=== PATIENT | male | born 1950 | race Caucasian/White ===

== ENCOUNTER → 2016-02-27 | Outpatient (CLI) | payer MEDICARE, OTHER ==
[2016-02-27 10:21] LABS: ANION GAP 16 (5-19); BLOOD UREA NITROGEN 22 mg/dL (7-20); CALCIUM 9.8 mg/dL (8.4-10.2); CARBON DIOXIDE 25 mmol/L (22-30); CHLORIDE 101 mmol/L (98-107); CREATININE RESULT 1.08 mg/dL (0.52-1.25); GLUCOSE 125 mg/dL (75-110); POTASSIUM 4.3 mmol/L (3.6-5.0); SODIUM 141.5 mmol/L (137-145)
== END ==
LOC: OD 09:19
PROVIDERS: ATTEND Urology
DX: N20.0 Calculus of kidney (principal)
CPT/HCPCS: 36415; 80048; 81003; 82131; 82340; 82507; 82570; 83735; 83935; 83945; 83970; 84105; 84156; 84300; 84392; 84560

== ENCOUNTER → 2016-03-22 | Outpatient (CLI) | payer MEDICARE, OTHER | LOC: OD 08:07 | DX: R06.02 Shortness of breath (principal); B00.89 Other herpesviral infection; I10 Essential (primary) hypertension; Z79.899 Other long term (current) drug therapy; M19.042 Primary osteoarthritis, left hand | CPT/HCPCS: 71020 ==

== ENCOUNTER → 2016-03-22 | Outpatient (CLI) | payer MEDICARE, OTHER ==
[2016-03-22 08:36] LABS: ABSOLUTE BASOPHILS # (AUTO) 0.1 10^3/uL (0.0-0.2); ABSOLUTE EOSINOPHILS # (AUTO) 0.2 10^3/uL (0.0-0.6); ABSOLUTE LYMPHOCYTES (AUTO) 3.1 10^3/uL (0.5-4.7); ABSOLUTE MONOCYTES (AUTO) 1.1 10^3/uL (0.1-1.4); ABSOLUTE NEUT (AUTO) 8.4 10^3/uL (1.7-8.2); BASOPHILS % (AUTO) 0.4 % (0-2); EOSINOPHILS % (AUTO) 1.2 % (0-6); HEMATOCRIT 43.5 % (37.9-51.0); HEMOGLOBIN 14.5 g/dL (13.5-17.0); LYMPHOCYTES % (AUTO) 24.3 % (13-45); MEAN CORPUSCULAR HEMOGLOBIN 29.8 pg (27.0-33.4); MEAN CORPUSCULAR HGB CONC 33.4 g/dL (32.0-36.0); MEAN CORPUSCULAR VOLUME 89 fl (80-97); MONOCYTES % (AUTO) 8.9 % (3-13); RED BLOOD COUNT 4.88 10^6/uL (4.35-5.55); RED CELL DISTRIBUTION WIDTH 13.5 % (11.5-14.0); SEGMENTED NEUTROPHILS % (AUTO) 65.2 % (42-78); WHITE BLOOD COUNT 12.9 10^3/uL (4.0-10.5)
[2016-03-22 08:57] LABS: ALANINE AMINOTRANSFERASE 36 U/L (21-72); ALBUMIN 4.8 g/dL (3.5-5.0); ALKALINE PHOSPHATASE 59 U/L (38-126); ANION GAP 14 (5-19); ASPARTATE AMINO TRANSFERASE 21 U/L (17-59); BILIRUBIN,TOTAL 0.6 mg/dL (0.2-1.3); BLOOD UREA NITROGEN 28 mg/dL (7-20); CALCIUM 9.8 mg/dL (8.4-10.2); CARBON DIOXIDE 27 mmol/L (22-30); CHLORIDE 98 mmol/L (98-107); CHOLESTEROL 164.26 mg/dL (0-200); CREATININE RESULT 1.04 mg/dL (0.52-1.25); Direct HDL 35 mg/dL (>40); GLUCOSE 87 mg/dL (75-110); POTASSIUM 4.7 mmol/L (3.6-5.0); SODIUM 138.5 mmol/L (137-145); TOTAL PROTEIN 7.4 g/dL (6.3-8.2); TRIGLYCERIDES 310 mg/dL (<150)
[2016-03-22 09:08] LABS: DIRECT LDL 84 mg/dL (<100)
== END ==
LOC: OD 07:51
DX: B00.89 Other herpesviral infection (principal); L03.019 Cellulitis of unspecified finger; E11.9 Type 2 diabetes mellitus without complications; Z79.899 Other long term (current) drug therapy; Z12.5 Encounter for screening for malignant neoplasm of prostate
CPT/HCPCS: 36415; 80053; 80061; 83036; 84153; 84443; 85025

== ENCOUNTER → 2016-07-27 | Outpatient (CLI) | payer MEDICARE, OTHER | LOC: OD 10:10 | PROVIDERS: ATTEND Physician Assistant | DX: M13.0 Polyarthritis, unspecified (principal) | CPT/HCPCS: 36415; 85652; 86038; 86140; 86256; 86430 ==

== ENCOUNTER 2017-08-25 12:23 | Observation (INO) | payer MEDICARE, OTHER ==
[2017-08-25 12:56] LABS: ABSOLUTE BASOPHILS # (AUTO) 0.1 10^3/uL (0.0-0.2); ABSOLUTE EOSINOPHILS # (AUTO) 0.1 10^3/uL (0.0-0.6); ABSOLUTE LYMPHOCYTES (AUTO) 2.1 10^3/uL (0.5-4.7); ABSOLUTE MONOCYTES (AUTO) 0.7 10^3/uL (0.1-1.4); ABSOLUTE NEUT (AUTO) 4.4 10^3/uL (1.7-8.2); BASOPHILS % (AUTO) 0.9 % (0-2); EOSINOPHILS % (AUTO) 1.8 % (0-6); INTERNATIONAL RATION (INR) 0.98; LYMPHOCYTES % (AUTO) 28.6 % (13-45); MEAN CORPUSCULAR HEMOGLOBIN 30.7 pg (27.0-33.4); MEAN CORPUSCULAR HGB CONC 34.1 g/dL (32.0-36.0); MEAN CORPUSCULAR VOLUME 90 fl (80-97); MONOCYTES % (AUTO) 9.6 % (3-13); PARTIAL THROMBOPLASTIN TIME 27.5 SEC (23.5-35.8); PLATELET COUNT 292 10^3/uL (150-450); RED CELL DISTRIBUTION WIDTH 13.1 % (11.5-14.0); SEGMENTED NEUTROPHILS % (AUTO) 59.1 % (42-78); TOTAL CELLS COUNTED % (AUTO) 100 %; WHITE BLOOD COUNT 7.5 10^3/uL (4.0-10.5)
[2017-08-25 13:03] LABS: PROTHROMBIN TIME 13.5 SEC (11.4-15.4)
[2017-08-25 13:13] LABS: ALANINE AMINOTRANSFERASE 37 U/L (21-72); ALBUMIN 4.6 g/dL (3.5-5.0); ALKALINE PHOSPHATASE 58 U/L (38-126); ANION GAP 15 (5-19); ASPARTATE AMINO TRANSFERASE 31 U/L (17-59); BILIRUBIN,DIRECT 0.4 mg/dL (0.0-0.4); BILIRUBIN,TOTAL 0.4 mg/dL (0.2-1.3); BLOOD UREA NITROGEN 25 mg/dL (7-20); CALCIUM 10.5 mg/dL (8.4-10.2); CARBON DIOXIDE 28 mmol/L (22-30); CHLORIDE 103 mmol/L (98-107); CREATINE KINASE 75 U/L (55-170); GLUCOSE 90 mg/dL (75-110); POTASSIUM 5.3 mmol/L (3.6-5.0); TOTAL PROTEIN 7.5 g/dL (6.3-8.2)
--- NOTE | 2017-08-25 13:22 | RADIOLOGY REPORT (SQ) ---
EXAM DESCRIPTION: CT HEAD WITHOUT COMPLETED DATE/TIME: 08/25/2017 12:38 pm REASON FOR STUDY: left numbness COMPARISON: August 2014 TECHNIQUE: Axial images acquired through the brain without intravenous contrast. Images reviewed wi th bone, brain and subdural windows. Additional sagittal and coronal reconstructions were generated. Images stored on PACS. All CT scanners at this facility use dose modulation, iterative reconstruction, and/or weight based d osing when appropriate to reduce radiation dose to as low as reasonably achievable (ALARA). [facility]: Dose Right [facility]: CareDose [facility]: Dose Right [facility]: Teradose 4D [facility]: Smart Mapbar RADIATION DOSE: CT Rad equipment meets quality standard of care and radiation dose reduction techniq ues were employed. CTDIvol: 53.2 mGy. DLP: 1017 mGy-cm. mGy. LIMITATIONS: None. FINDINGS: VENTRICLES: Normal size and contour. CEREBRUM: No masses. No hemorrhage. No midline shift. No evidence for acute infarction. Normal gra y/white matter differentiation. No areas of low density in the white matter. CEREBELLUM: No masses. No hemorrhage. No alteration of density. No evidence for acute infarction. EXTRAAXIAL SPACES: No fluid collections. No masses. ORBITS AND GLOBE: No intra- or extraconal masses. Normal contour of globe without masses. CALVARIUM: No fracture. PARANASAL SINUSES: Small mucosal polyp retention cyst is identified in the floor of the left maxillar y antra. SOFT TISSUES: No mass or hematoma. OTHER: No other significant finding. IMPRESSION: No significant intracranial abnormalities were identified. Findings as noted above EVIDENCE OF ACUTE STROKE: NO. COMMENT: Quality ID # [id number]: Final reports with documentation of one or more dose reduction techniques (e.g., Automated exposure control, adjustment of the mA and/or kV according to patient size, use of iterative reconstruction technique) TECHNICAL DOCUMENTATION: JOB ID: [id number] [employer]- All Rights Reserved Reading location - IP/workstation name: [email or web address]
[2017-08-25] MEDS ORDERED: ASPIRIN 81 MG TABLET, CHEWABLE PO ONE (13:42)
[2017-08-25 13:49] LABS: CREATINE KINASE MB 1.16 ng/mL (<4.55)
[2017-08-25 13:50] LABS: TROPONIN I < 0.012 ng/mL
--- NOTE | 2017-08-25 13:55 | RADIOLOGY REPORT (SQ) ---
EXAM DESCRIPTION: CHEST SINGLE VIEW COMPLETED DATE/TIME: 08/25/2017 1:25 pm REASON FOR STUDY: left numbness COMPARISON: March 2016 EXAM PARAMETERS: NUMBER OF VIEWS: One view. TECHNIQUE: Single frontal radiographic view of the chest acquired. RADIATION DOSE: NA LIMITATIONS: None. FINDINGS: LUNGS AND PLEURA: No opacities, masses or pneumothorax. No pleural effusion. There is a s mall focal linear density in the left costophrenic angle most consistent with subsegmental atelectasi s MEDIASTINUM AND HILAR STRUCTURES: No masses. Contour normal. HEART AND VASCULAR STRUCTURES: Heart normal in size. Normal vasculature. BONES: No acute findings. HARDWARE: None in the chest. OTHER: No other significant finding. IMPRESSION: NO ACUTE RADIOGRAPHIC FINDING IN THE CHEST. TECHNICAL DOCUMENTATION: JOB ID: [id number] [employer]- All Rights Reserved Reading location - IP/workstation name: [email or web address]
--- NOTE | 2017-08-25 14:45 | ER Document Report ---
ED Neuro Symptoms/Deficit - General Chief Complaint: S/S of Possible Stroke Stated Complaint: NUMBNESS TO FACE Time Seen by Provider: 08/25/17 12:31 Mode of Arrival: Ambulatory Information source: Patient Notes: Patient is 66-year-old male with hypertension, hyperlipidemia, diabetes who presents to the ER today via EMS for numbness and tingling to the left side of his face since 1:30 AM patient states that he woke up at [address] He denies any pain, slurred speech, facial droop, numbness or tingling, weakness anywhere else. Patient states it goes from the left corner of the mouth and has gradually spread to the front of the left ear and beneath the left eye. He does admit to some headache, behind the left eye. He denies any blurred vision but does state that earlier it was "difficult to see, kind of like I had to blink a couple times." He cannot further explain this. Patient has no history of heart attack or stroke. TRAVEL OUTSIDE OF THE [place] IN LAST 30 DAYS: No - Related Data Allergies/Adverse Reactions: No Known Allergies Allergy (Verified 12/22/15 09:06) Past Medical History - General Information source: Patient - Social History Smoking Status: Never Smoker Chew tobacco use (# tins/day): No Frequency of alcohol use: None Drug Abuse: None Family History: Reviewed & Not Pertinent Patient has suicidal ideation: No Patient has homicidal ideation: No - Past Medical History Cardiac Medical History: Reports: Hx Coronary Artery Disease, Hx Hypercholesterolemia, Hx Hypertension Denies: Hx Heart Attack Pulmonary Medical History: Denies: Hx Asthma, Hx Bronchitis, Hx COPD, Hx Pneumonia Neurological Medical History: Reports: Hx Migraine. Denies: Hx Cerebrovascular Accident, Hx Seizures Endocrine Medical History: Reports: Hx Diabetes Mellitus Type 2 Renal/ Medical History: Denies: Hx Peritoneal Dialysis Musculoskeletal Medical History: Denies Hx Arthritis Past Surgical History: Reports: Hx Orthopedic Surgery - left knee, left hand - Immunizations Hx Diphtheria, Pertussis, Tetanus Vaccination: Yes Hx Pneumococcal Vaccination: 02/14/14 Review of Systems - Review of Systems Constitutional: No symptoms reported EENT: No symptoms reported Cardiovascular: No symptoms reported Respiratory: No symptoms reported Gastrointestinal: No symptoms reported Genitourinary: No symptoms reported Male Genitourinary: No symptoms reported Musculoskeletal: No symptoms reported Skin: No symptoms reported Hematologic/Lymphatic: No symptoms reported Neurological/Psychological: See HPI Physical Exam - Vital signs Vitals: Pulse Ox 97 08/25/17 12:29 - Notes Notes: PHYSICAL EXAMINATION: GENERAL: Well-appearing and in no acute distress. HEAD: Atraumatic, normocephalic. EYES: Pupils equal round and reactive to light, extraocular movements intact, sclera anicteric, conjunctiva are normal. ENT: ear canals without erythema or foreign body, TMs pearly pimentel with good bony landmarks, nares patent, oropharynx clear without exudates. Moist mucous membranes. NECK: Normal range of motion, supple without lymphadenopathy LUNGS: CTAB and equal. No wheezes rales or rhonchi. HEART: Regular rate and rhythm without murmurs ABDOMEN: Soft, no tenderness. No guarding, no rebound BACK: no vertebral tenderness, normal ROM GI/: no CVA tenderness EXTREMITIES: Normal range of motion, no pitting edema. No cyanosis. NEUROLOGICAL: Cranial nerves grossly intact. Normal sensory/motor exams. Good and equal strength bilaterally, Kernig and Brudzinski's signs negative, Romberg' s test normal, normal heel to perez testing PSYCH: Normal mood, normal affect. SKIN: Warm, Dry, normal turgor, no rashes or lesions noted Course - Re-evaluation Re-evalutation: 08/25/17 15:36 Patient has an NIH score of 0, normal neurological exam although he complains of some numbness and tingling to the left side of his face. Patient does state that it seems to be getting a little better. CT of the head is negative for any acute pathology today, troponin normal, chest x-ray negative for any acute pathology, other lab work unremarkable today. Patient is admitted at this time for TIA and further workup including MRI and MRA. Leigha Quevedo, hospitalist nurse practitioner accepts admission. Patient was given aspirin. - Vital Signs Vital signs: Temp Pulse Resp BP Pulse Ox 98.1 F 60 17 150/88 H 95 08/25/17 13:08 08/25/17 12:52 08/25/17 13:07 08/25/17 12:52 08/25/17 13:07 - Laboratory Result Diagrams: 08/25/17 12:42 08/25/17 12:42 Laboratory results interpreted by me: 08/25/17 12:42 Sodium 146.0 H Potassium 5.3 H BUN 25 H Calcium 10.5 H ED Alteplase Inc/Exc Criteria - Date/Time patient last known well: Date/Time: 1:30am - Date/Time patient arrived in ED: _: 12:28p - Inclusion Criteria: 1: Patient presented to ED within 3 hours of acute ischemic stroke symptom onset ? -: No 2: Did baseline CT exclude intracranial hemorrhage and/or other risk factors? -: Yes 3: Is the age of the patient 18 years of age or greater? -: Yes : If any of the above questions are answered "NO" then stop, patient is not a candidate for Alteplase, : If all of the above questions are answered "YES" then continue with Exclusion Criteria. - Exclusion Criteria: 1: Is there evidence of intracranial hemorrhage on baseline CT? 2: Is there suspicion of subarachnoid hemorrhage (even if CT negative)? 3: Is there a history of serious head trauma, recent previous stroke or AK within 3 months? 4: Does the patient have a clinical presentation consistent with AK or post-AK pericarditis? 5: Is there history of intracranial hemorrhage? 6: On repeated measurement is Systolic BP greater than 185mmHg or Diastolic BP greater that 110 mmHg and is aggressive treatment needed to reduce blood pressure to these limits (e.g. constant infusion of an anti-hypertensive)? 7: Did the patient awake with stroke symptoms? 8: Has the patient had a lumbar puncture or an arterial puncture at a non- compressile site within 7 days? 9: With in the last 14 days did the patient have surgery or major trauma? 10: Is the patient or less than 2 weeks? 11: Was there any active bleeding or acute trauma? 12: Does the patient have intracranial neoplasm, arteriovenous malformation or aneurysm? 13: Does the patient have abnormal glucose (less than 50 or greater than 400mg/ dl)? Record glucose in Comment. 14: Patient has rapidly improving symptoms at the time Alteplase is to be Administered. 15: Does the patient have any risks for bleeding, including but not limited to: a.: Current use of Coumadin with PT greater than 15 seconds or INR greater than 1.7. b.: Current use of Pradaxa (Dabigatran). c.: Heparin administereed within the past 48 hours and PTT elevated. d.: Platelet count less than 100,000/mm. e.: Major surgery or serious trauma within 14 days. f.: Gastrointestinal or gynecological urinary bleeding within 14 days. g.: Myocardial Infarction (AK) within 3 months. : If the answer to any of the above questions is "YES" then stop, the patient is not a candidate for Alteplase. : If the answer to all of the above questions is "NO" then the patient may be eligible for the Administration of Alteplase. : If the patient is noted to have seizure activity at onset of Stroke symptoms; Consult Neurologist for further evaluation. - The patient is: -: Included and is eligible to receive Alteplase. *Initiate bed placement at higher level of care* Reviewd risks & benefits of thrombolytic therapy: I have reviewed the risks and benefits of thrombolytic therapy with the patient and/or his/her family. -: Excluded and not eligible to receive Alteplase for the above exclusions. -: Excluded and not eligible to receive Alteplase for other reasons (specify in comments): - Diagnosis of TIA: -: Patient presented with transient symptoms that are now resolved and no other neurologic findings are currently present. List symptoms in comments. -: Patient is NOT a candidate for tPA. -: ____(put name in comment) has been consulted for admission and continued evaluation of risk factor assessment. ED NIH Stroke Scale - NIH Stroke Scale *: 1. NIH scale should be completed with appropriate accompanying assessment tools. *: 2. The NIH should reflect what the patient is capable of doing and should not be coached by the clinician. 1a. Level of Consciousness: 0=Alert;keenly responsive -: 1=Drowsy -: 2=Obtunded -: 3=Coma/unresponsive or reflex to noxious stimuli. 1a. Responses: 0 1b. Orientation Questions: a. What month is it? -: b. How old are you? -: 0=Answers both questions correctly. -: 1=Answers one question correctly or patient is intubated or has orotracheal trauma. -: 2=Answers neither question correctly. 1b. Responses: 0 1c. Response to commands: a. Open and close eyes? -: b. Tour Sales Representative and release hand? -: Credit is given despite weakness. Demonstration of task is permitted. Substitute command if hands cannot be used. -: 0=Performs both tasks correctly -: 1=Performs one task correctly -: 2=Performs neither task correctly 1c. Responses: 0 2. Gaze: Establish eye contact and instruct patient to "Follow my finger" -: 0=Normal -: 1=Partial gaze palsy. Gaze is abnormal in one or both eyes, but where forced deviation or total gaze paresis is not present. -: 2=Forced deviation or total gaze paresis. 2. Responses: 0 3. Visual Stevens: Sees fingers in all four quadrants. -: 0=No visual loss. -: 1=Partial hemianopsia. -: 2=Complete hemianopsia. -: 3=Bilateral hemianopsia (including Cortical blindness) 3. Responses: 0 4. Facial Movement: Instruct patient to: -: a. Show me your teeth -: b. Raise your eyebrows -: c. Close your eyes -: d. Smile -: 0=Normal symmetrical movement -: 1=Minor paralysis (flattened nasolabial fold, asymmetry on smiling). -: 2=Partial paralysis (total or near total paralysis of lower face). -: 3=Complete paralysis of upper and lower face 4. Responses: 0 5. Motor functions (left arm): Alternate sides and extend each arm with palms down (90 degrees if sitting or 45 degrees for supine). -: 0=No drift;limb holds for full 10 seconds. -: 1=Drift; limb holds but drifts down before full 10 seconds, but does not hit bed. -: 2=Some effort against gravity; limb cannot get to or maintain position. -: 3=No effort against gravity; limb falls. -: 4=No movement. -: UN=Amputation, joint fusion, explain in comments. 5. Responses (left arm): 0 5. Motor Functions (right arm): Alternate sides and extend each arm with palms down (90 degrees if sitting or 45 degrees for supine). -: 0=No drift;limb holds for full 10 seconds. -: 1=Drift; limb holds but drifts down before full 10 seconds, but does not hit bed. -: 2=Some effort against gravity; limb cannot get to or maintain position. -: 3=No effort against gravity; limb falls. -: 4=No movement. -: UN=Amputation, joint fusion, explain in comments. 5. Responses (right arm): 0 6. Motor Functions (left leg): With patient lying supine, alternate sides and extend each leg (30 degrees always while supine). -: 0=No drift, leg holds position for full 5 seconds -: 1=Drift; leg falls before full 5 seconds but does not hit bed. -: 2=Some effort against gravity, leg falls to bed but some effort against gravity. -: 3=No effort against gravity, leg falls to bed immediately. -: 4=No movement. -: UN=Amputation, joint fusion; explain in comments. 6. Responses (left leg): 0 6. Motor Functions (right leg): With patient lying supine, alternate sides and extend each leg (30 degrees always while supine). -: 0=No drift, leg holds position for full 5 seconds -: 1=Drift; leg falls before full 5 seconds but does not hit bed. -: 2=Some effort against gravity, leg falls to bed but some effort against gravity. -: 3=No effort against gravity, leg falls to bed immediately. -: 4=No movement. -: UN=Amputation, joint fusion; explain in comments. 6. Responses (right leg): 0 7. Limb Ataxia: With eyes open instruct patient to: -: a. "Touch your finger to your nose". -: b. "Touch your heel to your perez" -: 0=Absent -: 1=Present in one limb. -: 2=Present in two limbs. -: UN=Amputation or joint fusion; explain in comments. 7. Responses: 0 8. Sensory: Test sensation using pinprick or noxious stimuli. Test as many body parts as possible. -: 0=Normal;no sensory loss -: 1=Mile to moderate sensory loss (patient feels pin prick but is less sharp on affected side). -: 2=Severe or total sensory loss. 8. Responses: 0 9. Best Language: Instruct patient to: -: a. "Describe what you see in this picture." -: b. "Name the items in this picture." -: c. "Read these sentences." -: 0=No aphasia, normal -: 1=Mild to moderate aphasia. -: 2=Severe aphasia -: 3=Mute, global aphasia, no usable speech or auditory comprehension. 9. Responses: 0 10. Articulation, Dysarthia: Instruct patient to: -: "Read these words" or "Repeat these words" -: 0=Normal -: 1=Mild to moderate; patient may slur some words but can be understood without difficulty. -: 2=Severe; patients speech so slurred as to be unintelligible in the absence of dysphasia. -: UN=Intubated or other physical barrier, explain in comments. 10. Responses: 0 11. Extinction or inattention: 0=No abnormality -: 1= Visual, tactile, auditory, spatial, or personal inattention or extinction to bilateral simulation in one or the sensory modalities. -: 2=Profound hernando-inattention or hernando-inattention to more than one modality; does not recognize own hand. 11. Responses: 0 Total Score: 0 Discharge - Discharge Clinical Impression: Stroke-like symptoms Condition: Stable Disposition: ADMITTED INPATIENT Admitting Provider: [facility] Unit Admitted: Telemetry
[2017-08-25] MEDS ORDERED: HYDRALAZINE HCL INJ/PF 20 MG/1 ML SDV IV PRN (15:48)
--- NOTE | 2017-08-25 18:50 | PDOC H&P ---
<LEIGHA CLANCY - Last Filed: 08/25/17 18:26> History of Present Illness Admission Date/PCP: 08/25/17 15:03 Patient complains of: Strokelike symptoms History of Present Illness: JUAN ALBERTO CHAPMAN JR is a 66 year old male who presented to the emergency department with stroke-like symptoms. Patient reports he has been experiencing a headache localized behind the left eye for 24-48 hours. He went to bed last night at 2230. This morning, he woke up at 0400 with left-sided facial paresthesia, visual deficits in the left eye, and a persistent headache behind the left eye. The patient states he took aspirin powder in attempt to relieve his symptoms, but it offered no relief. The patient denies any physical debility as a result of the symptoms, states he became concerned when he was having difficulty with his vision in the left eye, which prompted him to seek evaluation in the emergency department. The patient denies neck pain, ataxia, chest pain, shortness of breath, fever, chills, recent ill contacts. PMH includes HTN, HLD, DM, migraines (no history of migraines for 15+ years) Upon arrival to the emergency department, the patient's vital signs were T 98.1 BP 150/88 HR 60 RR 13 SPO2 96% on RA. Head CT normal, no neurological pathology. CXR benign, no cardiopulmonary pathology. EKG shows NSR, no acute ischemia or infarction. Troponin<0.012. All other lab work benign. Upon assessment, the patient is alert and oriented 3. He answers all questions appropriately without pause. +Slight LUE pronator drift. + Numbness and paresthesia to left side of the face. Equal strength in upper and lower extremities. No facial droop. PERRLA. No evidence of nystagmus. No visual deficits, although patient admits he needs to "focus on focusing" his eyesight. No difficulty with hand eye coordination. Admit to hospitalist service for acute CVA workup. Past Medical History Cardiac Medical History: Reports: Coronary Artery Disease, Hyperlipidema, Hypertension Denies: Myocardial Infarction Pulmonary Medical History: Denies: Asthma, Bronchitis, Chronic Obstructive Pulmonary Disease (COPD), Pneumonia Neurological Medical History: Reports: Migraine - Patient states he has not had a migraine in 15+ years Denies: Seizures Endocrine Medical History: Reports: Diabetes Mellitus Type 2 Musculoskeltal Medical History: Denies: Arthritis Hematology: Denies: Anemia Past Surgical History Past Surgical History: Reports: Appendectomy, Orthopedic Surgery - Left knee torn meniscus, left hand orthopedic surgery, Tonsillectomy Social History Smoking Status: Never Smoker - Advance Directive Resuscitation Status: Full Code Family History Family History: Hyperlipidemia, Hypertension, Malignancy, Other - Rheumatoid arthritis Parental Family History Reviewed: Yes Children Family History Reviewed: NA Sibling(s) Family History Reviewed.: NA Medication/Allergy Home Medications: Fenofibrate Nanocrystallized [Tricor 145 mg Tablet] 145 mg PO QHS 08/25/17 Liraglutide [Victoza 2-Scott] 1.8 mg SQ DAILY 08/25/17 Losartan Potassium [Cozaar 50 mg Tablet] 50 mg PO DAILY 08/25/17 Metformin HCl [Glucophage] 1,000 mg PO BIDBS 08/25/17 Oxycodone HCl/Acetaminophen [Percocet 7.5-325 mg Tablet] 1 each PO BIDP PRN 01/31 Pravastatin Sodium [Pravachol] 40 mg PO QHS 08/25/17 Sertraline HCl [Zoloft] 100 mg PO QHS 08/25/17 Aspirin [Aspirin 81 mg Chewable Tablet] 81 mg PO DAILY tab.chew 08/26/17 Allergies/Adverse Reactions: No Known Allergies Allergy (Verified 12/22/15 09:06) Review of Systems Constitutional: PRESENT: headache(s) - Headache originated 24-48 hours ago behind left eye Eyes: PRESENT: as per HPI, visual disturbances Nose, Mouth, and Throat: PRESENT: as per HPI Cardiovascular: PRESENT: as per HPI Respiratory: PRESENT: as per HPI Gastrointestinal: PRESENT: as per HPI Neurological: PRESENT: dizziness, tingling - Left face Physical Exam Vital Signs: Temp Pulse Resp BP Pulse Ox 98.1 F 60 16 134/85 H 94 08/25/17 13:08 08/25/17 12:52 08/25/17 16:01 08/25/17 16:00 08/25/17 16:01 General appearance: PRESENT: no acute distress Head exam: PRESENT: atraumatic, normocephalic Head Image: 1 - Paresthesia Eye exam: PRESENT: conjunctiva pink, PERRLA Mouth exam: PRESENT: moist Neck exam: PRESENT: full ROM Respiratory exam: PRESENT: clear to auscultation tolu, symmetrical, unlabored Cardiovascular exam: PRESENT: RRR, +S1, +S2 Pulses: PRESENT: normal radial pulses, normal dorsalis pedis pul GI/Abdominal exam: PRESENT: normal bowel sounds, soft. ABSENT: tenderness Rectal exam: PRESENT: deferred Extremities exam: PRESENT: full ROM. ABSENT: pedal edema Musculoskeletal exam: PRESENT: ambulatory, full ROM Neurological exam: PRESENT: alert, awake, oriented to person, oriented to place , oriented to time, oriented to situation, other - Left-sided facial paresthesia. Psychiatric exam: PRESENT: appropriate affect Skin exam: PRESENT: dry, intact, normal color, warm Results Impressions: Chest X-Ray 08/25/17 12:29 IMPRESSION: NO ACUTE RADIOGRAPHIC FINDING IN THE CHEST. Head CT 08/25/17 12:29 IMPRESSION: No significant intracranial abnormalities were identified. Findings as noted above EVIDENCE OF ACUTE STROKE: NO. Status: Imported from PACS Assessment & Plan - Diagnosis (1) Stroke-like symptoms Is this a current diagnosis for this admission?: Yes Plan: Unclear etiology, possibilities include acute CVA, TIA, carotid stenosis or blockage, Cadena's palsy Head CT negative, no neurological pathology. Plan for MRI/MRA to rule out acute CVA etiology Plan for carotid Doppler to rule out carotid artery stenosis/blockage Lipid panel in a.m. Aspirin and statin therapy Patient able to pass nursing bedside swallow evaluation No need for PT/OT at this time, patient is ambulatory and otherwise independent (2) HTN (hypertension) QualifierTitle: Hypertension type: essential hypertension Qualified Code( s): I10 - Essential (primary) hypertension Is this a current diagnosis for this admission?: Yes Plan: Treat hypertension. Plan to continue home dose antihypertensives. IV hydralazine 10 mg as needed for SBP>170 (3) HLD (hyperlipidemia) QualifierTitle: Hyperlipidemia type: unspecified Qualified Code(s): E78.5 - Hyperlipidemia, unspecified Is this a current diagnosis for this admission?: Yes Plan: Patient endorses history of HLD Lipid panel in a.m. Continue home dose fenofibrate and statin therapy - Time Time Spent: 50 to 70 Minutes Medications reviewed and adjusted accordingly: Yes Anticipated discharge: Home Within: within 48 hours - Inpatient Certification Based on my medical assessment, after consideration of the patient's comorbidities, presenting symptoms, or acuity I expect that the services needed warrant INPATIENT care.: Yes I certify that my determination is in accordance with my understanding of Medicare's requirements for reasonable and necessary INPATIENT services [42 CFR 412.3e].: Yes Medical Necessity: Risk of Complication if Not Cared For in Hospital - Plan Summary Plan Summary: Admit to hospitalist service. MRI/MRA results pending. Plan for carotid Doppler. <RADHAJUNE C - Last Filed: 08/26/17 15:33> History of Present Illness Admission Date/PCP: 08/25/17 15:03 History of Present Illness: JUAN ALBERTO Astorga ADELA is a 66 year old male Physical Exam Vital Signs: Temp Pulse Resp BP Pulse Ox 97.5 F 59 L 16 125/74 96 08/26/17 11:10 08/26/17 14:00 08/26/17 12:00 08/26/17 12:00 08/26/17 12:00 Intake & Output 08/25/17 08/26/17 08/27/17 06:59 06:59 06:59 Intake Total 3 Balance 3 Weight 124.7 kg Results Laboratory Results: 08/26/17 04:54 08/26/17 04:54 08/26/17 08/26/17 08/26/17 04:54 04:54 04:54 WBC 7.1 RBC 4.77 Hgb 14.8 Hct 42.7 MCV 89 MCH 31.1 MCHC 34.8 RDW 13.1 Plt Count 273 Sodium 144.0 Potassium 4.5 Chloride 102 Carbon Dioxide 27 Anion Gap 15 BUN 19 Creatinine 0.97 Est GFR ( Amer) > 60 Est GFR (Non-Af Amer) > 60 Glucose 94 Calcium 9.7 Total Bilirubin 0.3 AST 28 ALT 37 Alkaline Phosphatase 49 Total Protein 7.1 Albumin 4.4 Triglycerides 326 H Cholesterol 126.45 LDL Cholesterol Direct 58 VLDL Cholesterol 65.2 H HDL Cholesterol 24 L 08/26/17 04:54 NT-Pro-B Natriuret Pep 29 Impressions: Brain MRI with MRA 08/25/17 00:00 IMPRESSION: NORMAL MRA OF THE [place]. Head MRI 08/25/17 00:00 IMPRESSION: NORMAL MRI OF THE BRAIN WITHOUT INTRAVENOUS GADOLINIUM CONTRAST. EVIDENCE OF ACUTE STROKE: NO. Chest X-Ray 08/25/17 12:29 IMPRESSION: NO ACUTE RADIOGRAPHIC FINDING IN THE CHEST. Head CT 08/25/17 12:29 IMPRESSION: No significant intracranial abnormalities were identified. Findings as noted above EVIDENCE OF ACUTE STROKE: NO. Carotid Doppler Study 08/26/17 00:00 IMPRESSION: NO HEMODYNAMICALLY SIGNIFICANT STENOSIS. Assessment & Plan - Plan Summary Plan Summary: Patient discussed with Leigha Clancy RN. Cosigning note per hospital policy.
--- NOTE | 2017-08-25 18:50 | RADIOLOGY REPORT (SQ) ---
EXAM DESCRIPTION: MRA HEAD WITHOUT COMPLETED DATE/TIME: 08/25/2017 6:42 pm REASON FOR STUDY: evaluate for cva COMPARISON: None. TECHNIQUE: Axial 3-D [id number] acquisition imaging performed through the brain in the area of t he [place]. Images reformatted using 3-D MIPS. LIMITATIONS: None. FINDINGS: SOURCE IMAGES: No unexpected findings on source images. No large masses. 3-D MIP: No aneurysm. No occlusions. No significant stenosis. OTHER: No other significant finding. IMPRESSION: NORMAL MRA OF THE [place]. TECHNICAL DOCUMENTATION: JOB ID: [id number] [employer]- All Rights Reserved Reading location - IP/workstation name: [email or web address]
--- NOTE | 2017-08-25 18:55 | RADIOLOGY REPORT (SQ) ---
EXAM DESCRIPTION: MRI HEAD WITHOUT COMPLETED DATE/TIME: 08/25/2017 6:41 pm REASON FOR STUDY: evaluate for cva COMPARISON: Brain CT scan dated 08/25/2017 TECHNIQUE: Multiplanar imaging includes non-contrasted T1, T2, FLAIR, and diffusion with ADC map seq uences. Images stored on PACS. LIMITATIONS: None. FINDINGS: ANATOMY: No anomalies. Normal vascular flow voids. Pituitary fossa normal. CSF SPACES: Normal in size and contour. No hemorrhage. CEREBRUM: Sulci and gyri normal in size and contour. Normal white matter signal on FLAIR imaging. No evidence of hemorrhage, mass, or extraaxial fluid collection. POSTERIOR FOSSA: No signal alteration. No hemorrhage. No edema, masses or mass effect. Internal dinh tory canals, cerebello-pontine angles, mastoids normal. DIFFUSION IMAGING: Negative for acute or sub-acute infarction. ORBITS: No masses. Globes normal. PARANASAL SINUSES: Small mucosal polyp retention cyst is identified in the left maxillary antra. OTHER: No other significant finding. IMPRESSION: NORMAL MRI OF THE BRAIN WITHOUT INTRAVENOUS GADOLINIUM CONTRAST. EVIDENCE OF ACUTE STROKE: NO. TECHNICAL DOCUMENTATION: JOB ID: [id number] [employer]- All Rights Reserved Reading location - IP/workstation name: [email or web address]
[2017-08-25] MEDS ORDERED: LACTULOSE SYRUP 20 GM/30 ML UDCUP PO ONE (20:00)
--- NOTE | 2017-08-25 20:40 | EKG REPORT ---
SEVERITY:- NORMAL ECG - SINUS RHYTHM : Confirmed by: Azalia Burns MD 25-Aug-2017 20:39:04
[2017-08-25] MEDS ORDERED: ATORVASTATIN CALCIUM 10 MG TABLET PO SCH (22:00)
[2017-08-25] MEDS ORDERED: SERTRALINE HCL 50 MG TABLET PO SCH (22:00)
[2017-08-25] MEDS ORDERED: (PENDING PHARMACY ID) (Pravastatin Sodium [Pravachol] 40 MG) PO SCH (22:00)
[2017-08-25] MEDS ORDERED: FENOFIBRATE NANOCRYSTALLIZED 145 MG TABLET PO SCH (22:00)
[2017-08-25] MEDS ORDERED: DEXTROSE 40% GEL 15 GM TUBE PO PRN ×2 (22:04)
[2017-08-25] MEDS ORDERED: GLUCAGON,HUMAN RECOMB 1 MG INJ IM PRN (22:04)
[2017-08-25] MEDS ORDERED: DEXTROSE 50%-WATER 25 GM/50 ML DISP.SYRIN IV PRN ×2 (22:04)
[2017-08-25] MEDS ORDERED: INSULIN LISPRO 100 UNIT/ML 3 ML VIAL SUBCUT PRN (22:04)
[2017-08-25] MEDS: FAMOTIDINE 20 MG TABLET PO SCH (22:13)
[2017-08-26 05:37] LABS: HEMATOCRIT 42.7 % (37.9-51.0); HEMOGLOBIN 14.8 g/dL (13.5-17.0); MEAN CORPUSCULAR HEMOGLOBIN 31.1 pg (27.0-33.4); MEAN CORPUSCULAR HGB CONC 34.8 g/dL (32.0-36.0); MEAN CORPUSCULAR VOLUME 89 fl (80-97); PLATELET COUNT 273 10^3/uL (150-450); RED BLOOD COUNT 4.77 10^6/uL (4.35-5.55); RED CELL DISTRIBUTION WIDTH 13.1 % (11.5-14.0); WHITE BLOOD COUNT 7.1 10^3/uL (4.0-10.5)
[2017-08-26 06:08] LABS: ALANINE AMINOTRANSFERASE 37 U/L (21-72); ALBUMIN 4.4 g/dL (3.5-5.0); ALKALINE PHOSPHATASE 49 U/L (38-126); ANION GAP 15 (5-19); ASPARTATE AMINO TRANSFERASE 28 U/L (17-59); BILIRUBIN,DIRECT 0.3 mg/dL (0.0-0.4); BILIRUBIN,TOTAL 0.3 mg/dL (0.2-1.3); BLOOD UREA NITROGEN 19 mg/dL (7-20); CALCIUM 9.7 mg/dL (8.4-10.2); CARBON DIOXIDE 27 mmol/L (22-30); CHLORIDE 102 mmol/L (98-107); GLUCOSE 94 mg/dL (75-110); POTASSIUM 4.5 mmol/L (3.6-5.0); TOTAL PROTEIN 7.1 g/dL (6.3-8.2)
[2017-08-26 08:43] LABS: CHOLESTEROL 126.45 mg/dL (0-200); TRIGLYCERIDES 326 mg/dL (<150)
[2017-08-26 08:54] LABS: DIRECT LDL 58 mg/dL (<100)
[2017-08-26 08:57] LABS: VLDL CHOLESTEROL 65.2 mg/dL (10-31)
[2017-08-26] MEDS ORDERED: ASPIRIN 81 MG TABLET, CHEWABLE PO SCH (10:00)
[2017-08-26] MEDS ORDERED: ENOXAPARIN SODIUM INJ 30 MG/0.3 ML DISP.SYRIN SUBCUT SCH (10:00)
[2017-08-26] MEDS ORDERED: LOSARTAN POTASSIUM 50 MG TABLET PO SCH (10:00)
--- NOTE | 2017-08-26 10:16 | RADIOLOGY REPORT (SQ) ---
EXAM DESCRIPTION: CAROTID DOPPLER COMPLETED DATE/TIME: 08/26/2017 9:55 am REASON FOR STUDY: tia workup E78.4 OTHER HYPERLIPIDEMIA COMPARISON: None. TECHNIQUE: Grayscale ultrasound, Doppler velocity and spectra, and color Doppler images acquired of the extra-cranial carotid and vertebral arteries. Images stored on PACS. LIMITATIONS: None. FINDINGS: RIGHT CAROTID CCA Velocities: Within normal limits. ICA Velocities Peak systolic 0.80 m/s. End diastolic 0.36 m/s. Proximal ICA/CCA peak systolic ratio 1.12. Spectra normal. No significant plaque. LEFT CAROTID CCA Velocities: Within normal limits. ICA Velocities Peak systolic 0.76 m/s. End diastolic 0.26 m/s. Proximal ICA/CCA peak systolic ratio 0.99. Spectra normal. No significant plaque. VERTEBRAL ARTERIES: Antegrade flow. Normal waveforms. SUBCLAVIAN ARTERIES: No finding. OTHER: No other significant finding. IMPRESSION: NO HEMODYNAMICALLY SIGNIFICANT STENOSIS. COMMENT: Quality ID #[id number]: Velocity criteria are extrapolated from the diameter data as defined by t he Society of Radiologists in Ultrasound Consensus Conference. Radiology 2003: 229; 340-346. TECHNICAL DOCUMENTATION: JOB ID: [id number] [employer]- All Rights Reserved Reading location - IP/workstation name: [facility]
[2017-08-26] MEDS: FAMOTIDINE 20 MG TABLET PO SCH (11:27)
[2017-08-26 15:46] VITALS: BP 115/74
--- NOTE | 2017-09-01 17:40 | PDOC DISCHARGE SUMMARY ---
General - Admit/Disc Date/PCP Admission Date/Primary Care Provider: 08/25/17 15:03 Discharge Date: 08/26/17 - Discharge Diagnosis (1) Stroke-like symptoms Is this a current diagnosis for this admission?: Yes (2) HTN (hypertension) Is this a current diagnosis for this admission?: Yes (3) HLD (hyperlipidemia) Is this a current diagnosis for this admission?: Yes - Additional Information Resuscitation Status: Full Code Discharge Diet: As Tolerated Discharge Activity: Activity As Tolerated Home Medications: Fenofibrate Nanocrystallized [Tricor 145 mg Tablet] 145 mg PO QHS 08/25/17 Liraglutide [Victoza 2-Scott] 1.8 mg SQ DAILY 08/25/17 Losartan Potassium [Cozaar 50 mg Tablet] 50 mg PO DAILY 08/25/17 Metformin HCl [Glucophage] 1,000 mg PO BIDBS 08/25/17 Oxycodone HCl/Acetaminophen [Percocet 7.5-325 mg Tablet] 1 each PO BIDP PRN 01/31 Pravastatin Sodium [Pravachol] 40 mg PO QHS 08/25/17 Sertraline HCl [Zoloft] 100 mg PO QHS 08/25/17 Aspirin [Aspirin 81 mg Chewable Tablet] 81 mg PO DAILY tab.chew 08/26/17 History of Present Illness History of Present Illness: JUAN ALBERTO CHAPMAN JR is a 66 year old male who presented to the emergency department with stroke-like symptoms. Patient reports he has been experiencing a headache localized behind the left eye for 24-48 hours. He went to bed last night at 2230. This morning, he woke up at 0400 with left-sided facial paresthesia, visual deficits in the left eye, and a persistent headache behind the left eye. The patient states he took aspirin powder in attempt to relieve his symptoms, but it offered no relief. The patient denies any physical debility as a result of the symptoms, states he became concerned when he was having difficulty with his vision in the left eye, which prompted him to seek evaluation in the emergency department. The patient denies neck pain, ataxia, chest pain, shortness of breath, fever, chills, recent ill contacts. PMH includes HTN, HLD, DM, migraines (no history of migraines for 15+ years) Upon arrival to the emergency department, the patient's vital signs were T 98.1 BP 150/88 HR 60 RR 13 SPO2 96% on RA. Head CT normal, no neurological pathology. CXR benign, no cardiopulmonary pathology. EKG shows NSR, no acute ischemia or infarction. Troponin<0.012. All other lab work benign. Upon assessment, the patient is alert and oriented 3. He answers all questions appropriately without pause. +Slight LUE pronator drift. + Numbness and paresthesia to left side of the face. Equal strength in upper and lower extremities. No facial droop. PERRLA. No evidence of nystagmus. No visual deficits, although patient admits he needs to "focus on focusing" his eyesight. No difficulty with hand eye coordination. Admit to hospitalist service for acute CVA workup. Hospital Course Hospital Course: 66 y.o. morbidly obese M admitted for stroke-like symptoms. Patient endorsed L facial numbness (no paralysis), headache and blurry vision in the L eye. Patient states he was experiencing his headache for 'days' prior to arrival. He began having facial numbness and blurry vision, which prompted him to come to the ED. Head CT negative, no neurological pathology. Patient was admitted for CVA/TIA workup. He was started on ASA and statin therapy. MRI/MRA and carotid doppler studies were all normal. Lipid panel revealed the patient's triglycerides were elevated to >300 (his total cholersterol was 128). When the patient was evaluated the following morning, he stated that his symptoms had resolved. It was determined that the patient most likely suffered a TIA. He was deemed safe for discharge since all of his imaging was negative, his symptoms had resolved, and his vital signs had remained stable. The patient was counseled about the need to make healthier lifestyle choices. He was already on the maximum dose of fenofibrates to lower his triglycerides, switching to a statin would not be indicated. The patient was provided a great deal of literature regarding the dangers of elevated triglycerides as well as metabolic syndrome. The patient stated full understanding of his discharge instructions and a follow up appointment was scheduled with his PMD within 2 weeks of his discharge date. Physical Exam Vital Signs: Temp Pulse Resp BP Pulse Ox 97.5 F 59 L 16 115/74 96 08/26/17 15:43 08/26/17 15:43 08/26/17 15:43 08/26/17 15:43 08/26/17 15:43 Results Laboratory Results: 08/26/17 04:54 08/26/17 04:54 08/26/17 04:54 NT-Pro-B Natriuret Pep 29 Impressions: Brain MRI with MRA 08/25/17 00:00 IMPRESSION: NORMAL MRA OF THE [place] OF [place]. Head MRI 08/25/17 00:00 IMPRESSION: NORMAL MRI OF THE BRAIN WITHOUT INTRAVENOUS GADOLINIUM CONTRAST. EVIDENCE OF ACUTE STROKE: NO. Chest X-Ray 08/25/17 12:29 IMPRESSION: NO ACUTE RADIOGRAPHIC FINDING IN THE CHEST. Head CT 08/25/17 12:29 IMPRESSION: No significant intracranial abnormalities were identified. Findings as noted above EVIDENCE OF ACUTE STROKE: NO. Carotid Doppler Study 08/26/17 00:00 IMPRESSION: NO HEMODYNAMICALLY SIGNIFICANT STENOSIS. Status: Imported from PACS Qualifiers - * PATIENT BEING DISCHARGED WITH ANY OF THE FOLLOWING DIAGNOSIS: No Plan Discharge Plan: DISCHARGE HOME. FOLLOW UP WITH PMD IN 2 WEEKS. EAT HEALTHIER AND LOSE WEIGHT Time Spent: Less than 30 Minutes
--- NOTE | 2017-09-02 08:41 | PDOC PROGRESS REPORT ---
Subjective Subjective: Patient is a 66-year-old male with a significant history of hypertension, hyperlipidemia, diabetes, and migraine who was recently discharged from [facility] after having a TIA on August 25, 2017. Patient initially presented with numbness and tingling to the left side of his face with headache and vision disturbance. Patient's initial NIH score was 0. Patient had resolution of his symptoms while in the emergency department. Patient's stroke workup was negative suggesting transient ischemic attack. The patient was started on aspirin and was discharged home on his usual pravastatin that he had been taking. Patient denies any issues with chewing, swallowing or pocketing food. Patient has been on a regular diet. Patient is independently ambulating and driving without issue. Patient denies any falls in the past 3 months and no falls since his TIA. Patient does live with his girlfriend. Patient states that he has not had any problems with bowel or bladder issues. Patient does report feeling down at times. PHQ 9 score was 11. Patient does have a primary doctor but has not seen them for follow-up since being discharged from the hospital. Patient is not scheduled for any physical therapy, occupational or speech therapy. Allergies/Adverse Reactions: No Known Allergies Allergy (Verified 12/22/15 09:06) Home Medications: Fenofibrate Nanocrystallized [Tricor 145 mg Tablet] 145 mg PO QHS 08/25/17 Liraglutide [Victoza 2-Scott] 1.8 mg SQ DAILY 08/25/17 Losartan Potassium [Cozaar 50 mg Tablet] 50 mg PO DAILY 08/25/17 Metformin HCl [Glucophage] 1,000 mg PO BIDBS 08/25/17 Oxycodone HCl/Acetaminophen [Percocet 7.5-325 mg Tablet] 1 each PO BIDP PRN 01/31 Pravastatin Sodium [Pravachol] 40 mg PO QHS 08/25/17 Sertraline HCl [Zoloft] 100 mg PO QHS 08/25/17 Physical Exam Vital Signs: 120/76, 62, 18 General appearance: PRESENT: no acute distress, cooperative Head exam: PRESENT: atraumatic, normocephalic Eye exam: PRESENT: conjunctiva pink, EOMI, PERRLA. ABSENT: nystagmus Mouth exam: PRESENT: moist, neck supple, tongue midline Throat exam: ABSENT: post pharyngeal erythema Neck exam: PRESENT: full ROM. ABSENT: carotid bruit, lymphadenopathy Respiratory exam: PRESENT: clear to auscultation tolu, symmetrical, unlabored. ABSENT: wheezes Cardiovascular exam: PRESENT: RRR, +S1, +S2 Pulses: PRESENT: normal radial pulses Vascular exam: PRESENT: normal capillary refill GI/Abdominal exam: PRESENT: soft. ABSENT: tenderness Musculoskeletal exam: PRESENT: ambulatory, full ROM, normal inspection. ABSENT : tenderness Psychiatric exam: PRESENT: appropriate affect, normal mood Skin exam: PRESENT: dry, intact, warm - Extreminites General upper extremity: Normal inspection, Nontender, Normal ROM, Normal strength General lower extremity: Normal inspection, Nontender, Normal ROM, Normal strength - Neurological Neuro grossly intact: Yes Cognition: Normal Orientation: AAOx4 Mirlande Coma Scale Eye Opening: Spontaneous Mirlande Coma Scale Verbal: Oriented Mirlande Coma Scale Motor: Obeys Commands Mirlande Coma Scale Total: 15 Speech: Normal. negative: Dysarthria Cranial nerves: Normal. negative: Facial palsy, Gaze palsy Cerebellar coordination: Normal, Heel-perez, Finger-nose rhombey, Rapid alt. movements. negative: Gait ataxia Motor strength normal: LUE, RUE, LLE, RLE Additional motor exam normals: Equal reference services head. negative: Involuntary movements, Weakness, Hemiplegia Reflex grade: 0=absent. 1=hypoactive. 2=normal. 3=increased. 4=clonus Results - x laboratory: 08/25/17 08/26/17 08/26/17 22:15 04:54 04:54 WBC 7.1 RBC 4.77 Hgb 14.8 Hct 42.7 MCV 89 MCH 31.1 MCHC 34.8 RDW 13.1 Plt Count 273 Sodium 144.0 Potassium 4.5 Chloride 102 Carbon Dioxide 27 Anion Gap 15 BUN 19 Creatinine 0.97 Est GFR ( Amer) > 60 Est GFR (Non-Af Amer) > 60 Glucose 94 POC Glucose 106 Calcium 9.7 Total Bilirubin 0.3 Direct Bilirubin 0.3 Neonat Total Bilirubin Not Reportable Neonat Direct Bilirubin Not Reportable Neonat Indirect Bili Not Reportable AST 28 ALT 37 Alkaline Phosphatase 49 NT-Pro-B Natriuret Pep Total Protein 7.1 Albumin 4.4 Triglycerides Cholesterol LDL Cholesterol Direct VLDL Cholesterol HDL Cholesterol 08/26/17 08/26/17 08/26/17 04:54 04:54 11:26 WBC RBC Hgb Hct MCV MCH MCHC RDW Plt Count Sodium Potassium Chloride Carbon Dioxide Anion Gap BUN Creatinine Est GFR ( Amer) Est GFR (Non-Af Amer) Glucose POC Glucose 112 H Calcium Total Bilirubin Direct Bilirubin Neonat Total Bilirubin Neonat Direct Bilirubin Neonat Indirect Bili AST ALT Alkaline Phosphatase NT-Pro-B Natriuret Pep 29 Total Protein Albumin Triglycerides 326 H Cholesterol 126.45 LDL Cholesterol Direct 58 VLDL Cholesterol 65.2 H HDL Cholesterol 24 L Radiology: Carotid Doppler Study 08/26/17 00:00 IMPRESSION: NO HEMODYNAMICALLY SIGNIFICANT STENOSIS. Assessment and Plan - Plan Plan: Stroke Clinic Visit Todays Visit Date: 09/01/2017 Hospital Discharge Date: 08/26/2017 Follow Up Phone Call Date: 08/30/2017 Reason for Todays Visit: Hospital Follow Up after CVA Risk Stratification Labs: Cholesterol 126 , Triglycerides 326 ,HDL 24 , LDL 58 . Current Status: Patient was seen today for stroke/TIA clinic follow-up as part of the [facility] Study. Todays Post Stroke Functional Assessment was generated with an electronic eCare plan and the abbreviated results are listed below: Stroke Risk Factor Assessment: Stroke risk factor include: hypertension, diabetes, hyperlipidemia, obesity Today BP 120/76, HR 62. Encouraged home self-monitoring and recording a log Patient is on victoza and metformin for diabetes management Patient is on pravastatin daily for cholesterol: denies missing any doses Patient reports being active for at least 20 minutes each day, at least 3 days a week Patient denies any alcohol or illicit substance use. Medication list was reconciled Patient sees Dr Cassidy for primary care. Patient has an upcoming appointment with Dr Cassidy September 14 Additional Stroke Risk Factors: Patient denies use of herbal supplements: including diet/weight loss supplements , workout supplements, or highly caffeinated energy drinks. Stroke Complications Assessment: The patient denies any signs or symptoms of UTI, pneumonia, dehydration, bleeding (hematuria, melena), dysphagia, cognitive deficits, tightening of the extremities suggestive of spasticity, or depression. Patient denies any safety concerns (mismanaged medications, falls, or needing 24 hour supervision). The patient has had no ER visits since leaving [facility]. Subjective Assessment: The patient is independent with IADLS and ADLS. Patient has been driving since having TIA. Patient live with girlfriend. Caregiver strain was verbally assessed , and no issues were identified. PMH: HTN, diabetes, HLD, CAD, migraines PSH: orthopedic, appendectomy Allergies: none Social: denies smoking, illicit substances or drinking alcohol Modified Aditi scale 0 Plan Stroke Risk Factor Management: 1. Continue ASA 81 mg for stroke prevention. -watch for signs of abnormal bleeding/bruising 2. Blood pressure: Goal BP <140/90 - blood pressure today -take blood pressure measurements daily and keep a log for PCP to review -Blood pressure education was provided 3. Cholesterol: LDL 58. Goal LDL <70, goal HDL>50. -extensive cholesterol education was provided including therapeutic lifestyle changes and education -Patient is presently taking pravastatin, discussed with patient that he should speak with his doctor about changing his pravastatin to an alternative drug such as atorvastatin or rosuvastatin for secondary prevention of TIA and CVA. 4. Diabetes Management: goal A1c <7% -A1c not measured during this hospitalization, blood sugars were well- controlled during admission, need strict control of blood sugars to decrease stroke risk. -Extensive diabetes education was provided including lifestyle changes and education handout 5. Rehabilitation: Maximize physical activity for full rehabilitation. -physical activity as tolerated to a goal of 30 minutes exercise at least 5 days a week. 6. Advance directives: -counselling was provided regarding advance directives We discussed signs and symptoms of stroke and when to call 911 such as any new numbness, weakness, dyarthria, dysphagia, aphasia, dizziness, diplopia, vision loss, or balance problems.
== END 2017-08-26 16:37 | disposition home or self-care (01) ==
LOC: ER 12:23 → INTOOBSV 15:03 → EH 15:03 → 3W 20:24
PROVIDERS: ADMIT Internal Medicine; ATTEND Internal Medicine
DX: R51 Headache (principal); R20.2 Paresthesia of skin; R20.0 Anesthesia of skin; H53.8 Other visual disturbances; E78.5 Hyperlipidemia, unspecified; I10 Essential (primary) hypertension; E66.01 Morbid (severe) obesity due to excess calories; I25.10 Atherosclerotic heart disease of native coronary artery without angina pectoris; E11.9 Type 2 diabetes mellitus without complications; R42 Dizziness and giddiness; Z79.899 Other long term (current) drug therapy; Z90.49 Acquired absence of other specified parts of digestive tract; Z82.49 Family history of ischemic heart disease and other diseases of the circulatory system; Z79.82 Long term (current) use of aspirin; Z79.84 Long term (current) use of oral hypoglycemic drugs; Z86.73 Personal history of transient ischemic attack (TIA), and cerebral infarction without residual deficits; Z86.69 Personal history of other diseases of the nervous system and sense organs; Z68.39 Body mass index [BMI] 39.0-39.9, adult
CPT/HCPCS: 93005; 99285; 36415 ×2; 82553; 82962 ×2; 82550; 85025; 85027; 85610; 85730; 80053 ×2; 84484; 80061; 83880; 93880; 70551; 70544; 71045; 70450; 93010; G0378 ×3; A9270 ×9; J1650; J3490

== ENCOUNTER → 2018-06-06 | Day surgery (SDC) | payer MEDICARE, OTHER ==
[~2018-06-06] MED LIST: BUPIVACAINE HCL 0.5 % INJ/PF 30 ML SDV ONE; LIDOCAINE 1% INJ-PF (10 MG/ML) 30 ML SDV ONE; LIDOCAINE 2% INJ (20 MG/ML) 20 ML MDV ONE; METHYLPREDNISOLONE ACETATE INJ 40 MG/1 ML ML ONE
--- NOTE | 2018-06-06 15:30 | Operative Report ---
PREOPERATIVE DIAGNOSIS: Lumbar Spondylosis POSTOPERATIVE DIAGNOSIS: Lumbar Spondylosis PROCEDURE: Radiofrequency Ablation of medial branches - RT L4 L5 / LT L4 L5 DATE OF PROCEDURE: 06/06/2018 ANESTHESIA: Local COMPLICATIONS: None CONSENT: A full description of the procedure was provided including benefits as well as possible complications. All questions were answered and informed consent was given and signed. ASA guidelines for fasting were verified prior to sedation. PROCEDURE IN DETAIL The patient was brought into the fluoroscopy suite and positioned into the prone position on the fluoroscopy table and allowed to adjust to a position of comfort. A grounding pad was placed on the right thigh. The lumbar region was widely prepped with a chloraprep solution, allowed to air dry and draped in standard sterile surgical fashion. Local anesthesia was provided by 1 mL of 1 % lidocaine delivered with a 25 g needle. A 17g 100mm radiofrequency introducer needle was placed to the planned anatomic targets guided with intermittent fluoroscopy with a perpendicular approach to terminally place at the junction of the superior articular process and the transverse process of the bilateral L5 and the base of the sacral ala on the bilaterally for the L5 medial branch nerve. The stylets were removed and radiofrequency probes with a 4mm active tip were then inserted. Needle tip position of the probes was verified in the AP, oblique, and lateral views. At each site, the medial branch nerve was stimulated at 2 Hz to a maximum 1-2 volts determined to finalize safe needle and electrode placement. The patient was awake and responsive during this portion of the procedure. Each target was anesthetized with 1-2 mL of [2]% lidocaine for anesthesia for lesioning and then each target was lesioned at 80 degrees Celsius for 2 minutes and 30 seconds. Tissue impedences were noted to be between 250 and 500 Ohms. A solution of sensorcaine and depomedrol was injected at each site. Electrodes and needles were then removed and bandages placed over the needle placement sites, the patient then returned to the supine position on a stretcher and transported to the recovery room without hemodynamic, neurologic, or allergic reactions. Fluoroscopic images were printed for hard copy recording and digitally archived. POST PROCEDURE EVALUATION: The patient was comfortable in the recovery room. The patient is aware that pain may worsen before remitting and 4 6 weeks may be required prior to the onset of pain relief. IMPRESSION: 1. Technically successful lateral L4 L5 medial branch radiofrequency neurotomy for denervation on the bilaterally without complication. 2. RTC in [6] weeks. 3. Estimated Blood Loss: 5cc 4. Fluoroscopy time: [See nursing record] seconds
== END ==
LOC: RAD 14:02
PROVIDERS: ATTEND Student in an Organized Health Care Education/Training Program
DX: M47.816 Spondylosis without myelopathy or radiculopathy, lumbar region (principal)
CPT/HCPCS: 64635; 64636; J3490 ×3; J1020

== ENCOUNTER → 2019-01-09 | Day surgery (SDC) | payer MEDICARE, OTHER ==
[~2019-01-09] MED LIST changes: -LIDOCAINE 1% INJ-PF (10 MG/ML) 30 ML SDV ONE
--- NOTE | 2019-01-09 13:40 | Operative Report ---
PREOPERATIVE DIAGNOSIS: Lumbar Spondylosis POSTOPERATIVE DIAGNOSIS: Lumbar Spondylosis PROCEDURE: Radiofrequency Ablation of medial branches - RT L4 and dorsal primary ramus of L5 / LT L4 and dorsal primary ramus of L5 DATE OF PROCEDURE: 01 09 2019 ANESTHESIA: Local COMPLICATIONS: None CONSENT: A full description of the procedure was provided including benefits as well as possible complications. All questions were answered and informed consent was given and signed. ASA guidelines for fasting were verified prior to sedation. PROCEDURE IN DETAIL The patient was brought into the fluoroscopy suite and positioned into the prone position on the fluoroscopy table and allowed to adjust to a position of comfort. A grounding pad was placed on the right thigh. The lumbar region was widely prepped with a chloraprep solution, allowed to air dry and draped in standard sterile surgical fashion. Local anesthesia was provided by 1 mL of 1 % again delivered with a 25 g needle. A 17g 100mm radiofrequency introducer needle was placed to the planned anatomic targets guided with intermittent fluoroscopy with a perpendicular approach to terminally place at the junction of the superior articular process and the transverse process of the bilateral L5 and the base of the sacral ala on the bilateral for the L5 medial branch nerve. The stylets were removed and radiofrequency probes with a 4mm active tip were then inserted. Needle tip position of the probes was verified in the AP, oblique, and lateral views. At each site, the medial branch nerve was stimulated at 2 Hz to a maximum 1-2 volts determined to finalize safe needle and electrode placement. The patient was awake and responsive during this portion of the procedure. Each target was anesthetized with 1-2 mL of 2 % lidocaine for anesthesia for lesioning and then each target was lesioned at 80 degrees Celsius for 2 minutes and 30 seconds. Tissue impedences were noted to be between 250 and 500 Ohms. A solution of depomedrol and sensorcaine was injected at each site. Electrodes and needles were then removed and bandages placed over the needle placement sites, the patient then returned to the supine position on a stretcher and transported to the recovery room without hemodynamic, neurologic, or allergic reactions. Fluoroscopic images were printed for hard copy recording and digitally archived. POST PROCEDURE EVALUATION: The patient was comfortable in the recovery room. The patient is aware that pain may worsen before remitting and 4 6 weeks may be required prior to the onset of pain relief. IMPRESSION: 1. Technically successful bilateral L4 and dorsal primary ramus of L5 medial branch radiofrequency neurotomy for denervation on the bilateral without complication. 2. RTC in 6 weeks. 3. Estimated Blood Loss: 5 cc 4. Fluoroscopy time: See nursing record for seconds
== END ==
LOC: RAD 12:31
PROVIDERS: ATTEND Student in an Organized Health Care Education/Training Program
DX: M47.816 Spondylosis without myelopathy or radiculopathy, lumbar region (principal)
CPT/HCPCS: 64635; 64636; J3490 ×2; J1030